=== PATIENT | male | born 1960 | race Two or more races ===

== ENCOUNTER 2018-06-02 19:10 | Inpatient (IN) | payer OTHER ==
[2018-06-02 20:20] VITALS: BMI 40.3
--- NOTE | 2018-06-02 20:43 | HP ---
CIWA Score Nausea/Vomitin-Mild Nausea/No Vomiting Muscle Tremors: 4-Moderate,w/Arms Extend Anxiety: 3 Agitation: 4-Moderately Restless Paroxysmal Sweats: 3 Orientation: 2-Disoriented Date<2 days Tacttile Disturbances: 0-None Auditory Disturbances: 0-None Visual Disturbances: 0-None Headache: 0-None Present CIWA-Ar Total Score: 17 - Admission Criteria OASAS Guidelines: Admission for Medically Managed Detox: Requires at least one of the followin. CIWA greater than 12 2. Seizures within the past 24 hours 3. Delirium tremens within the past 24 hours 4. Hallucinations within the past 24 hours 5. Acute intervention needed for co occurring medical disorder 6. Acute intervention needed for co occurring psychiatric disorder 7. Severe withdrawal that cannot be handled at a lower level of care (continued vomiting, continued diarrhea, abnormal vital signs) requiring intravenous medication and/or fluids 8. Admission ROS [facility] Chief Complaint: Alcohol withdrawal symptoms Allergies/Adverse Reactions: Allergies Allergy/AdvReac Type Severity Reaction Status Date / Time No Known Allergies Allergy Verified 06/02/18 20:22 History of Present Illness: 57 years old male with a long history of alcohol dependence is seeking admission to detox. Patient's last detox was in 2011 and he reports insignificant period of sobriety. He has medical history of cirrhosis of the liver , depression, hypertension and Diabetes. He denies suicide attempt and suicidal ideation at this time. He is on Methadone 130mg with [facility] . Dose is yet to be verified by the nurse. Exam Limitations: No Limitations - Ebola screening Have you traveled outside of the country in the last 21 days: No (N) Have you had contact with anyone from an Ebola affected area: No Have you been sick,other than usual withdrawal symptoms: No Do you have a fever: No - Review of Systems Constitutional: Chills, Malaise, Changes in sleep EENT: reports: Sinus Pressure Respiratory: reports: No Symptoms reported Cardiac: reports: No Symptoms Reported GI: reports: Abdominal Distended, Poor Appetite, Poor Fluid Intake, Abdominal cramping Musculoskeletal: reports: No Symptoms Reported Integumentary: reports: Dryness, Flushing Neuro: reports: Tremors Endocrine: reports: No Symptoms Reported Hematology: reports: No Symptoms Reported Psychiatric: reports: Mood/Affect Appropiate, Anxious Other Systems: Reviewed and Negative Patient History - Patient Medical History Hx Asthma: No Hx Chronic Obstructive Pulmonary Disease (COPD): No Hx Cancer: No Hx Cardiac Disorders: No Hx Congestive Heart Failure: No Hx Hypertension: Yes (Not on medication) Hx Hypercholesterolemia: No HX Cerebrovascular Accident: No Hx Seizures: No Hx Diabetes: Yes (NIDDM-Metformin) Hx Gastrointestinal Disorders: Yes (CIRRHOSIS OF THE LIVER) Hx Genitourinary Disorders: No Hx Sexually Transmitted Disorders: No Hx Renal Disease (ESRD): No Hx Human Immunodeficiency Virus (HIV): No (NEGATIVE ON 07/2011) Hx Hepatitis C: No (DENIES) Hx Depression: Yes Hx Suicide Attempt: No (DENIES SUICIDAL IDEATION AT THIS TIME) Hx Bipolar Disorder: Yes Hx Schizophrenia: No - Patient Surgical History Past Surgical History: No Hx Neurologic Surgery: No Hx Cataract Extraction: No Hx Cardiac Surgery: No Hx Lung Surgery: No Hx Abdominal Surgery: No Hx Appendectomy: No Hx Cholecystectomy: No Hx Genitourinary Surgery: No Hx Orthopedic Surgery: No Anesthesia Reaction: No - PPD History Previous Implant?: Yes Documented Results: Negative w/proof Implanted On Prior [facility] Admission?: Yes Date: 01/04/12 PPD to be Administered?: Yes - Reproductive History Patient is a Female of Child Bearing Age (11 -55 yrs old): No (MALE) - Smoking Cessation Smoking history: Current every day smoker Have you smoked in the past 12 months: Yes Aproximately how many cigarettes per day: 15 Hx Chewing Tobacco Use: No Initiated information on smoking cessation: Yes 'Breaking Loose' booklet given: 06/02/18 - Substance & Tx. History Hx Alcohol Use: Yes Hx Substance Use: No Substance Use Type: Alcohol Hx Substance Use Treatment: Yes ([facility] 2011) - Substances Abused Alcohol Route: Oral Frequency: Daily Amount used: LIQUOR- 3 PINTS, BEER- 4 SIX PACKS Age of first use: 18 Date of Last Use: 06/02/18 Family Disease History - Family Disease History Family History: Denies Admission Physical Exam [facility] - Vital Signs Vital Signs: Vital Signs - 24 hr 06/02/18 20:16 Temperature 97.6 F Pulse Rate 91 H Respiratory 18 Rate Blood Pressure 122/76 - Physical General Appearance: Yes: Severe Distress, Tremorous, Irritable, Sweating, Anxious HEENTM: Yes: Nasal Congestion Respiratory: Yes: Lungs Clear, Normal Breath Sounds, No Respiratory Distress Neck: Yes: Supple Breast: Yes: Breast Exam Deferred Cardiology: Yes: Tachycardia Abdominal: Yes: Protuberent, Distended, Other (CIRRHOSIS OF THE LIVER) Genitourinary: Yes: Polyuria Back: Yes: Normal Inspection Musculoskeletal: Yes: Within Normal Limits Extremities: Yes: Tremors Neurological: Yes: Alert, Normal Mood/Affect Integumentary: Yes: Warm Lymphatic: Yes: Within Normal Limits - Diagnostic (1) Alcohol dependence with uncomplicated withdrawal Current Visit: Yes Status: Chronic (2) Hypertension Current Visit: Yes Status: Chronic Qualifiers: Hypertension type: essential hypertension Qualified Code(s): I10 - Essential (primary) hypertension (3) Cirrhosis of liver Current Visit: Yes Status: Chronic Qualifiers: Hepatic cirrhosis type: alcoholic cirrhosis (4) DM type 2 (diabetes mellitus, type 2) Current Visit: Yes Status: Chronic Cleared for Admission [facility] - Detox or Rehab [facility] Level of Care: Medically Managed Detox Regimen/Protocol: Librium S Breath Alcohol Content Breath Alcohol Content: 0.127 Urine Drug Screen - Results Drug Screen Negative: No Urine Drug Screen Results: MTD-Methadone Inpatient Rehab Admission - Rehab Decision to Admit Inpatient rehab admission?: No
[2018-06-02] MEDS ORDERED: ACETAMINOPHEN 325 MG TABLET (FP) PO PRN (21:01)
[2018-06-02] MEDS ORDERED: MAGNESIUM CITRATE 300 ML BOTTLE PO PRN (21:01)
[2018-06-02] MEDS ORDERED: chlordiazePOXIDE HCL 25 MG CAPSULE PO PRN (21:01)
[2018-06-02] MEDS ORDERED: NICOTINE POLACRILEX 2 MG GUM BC PRN (21:01)
[2018-06-02] MEDS ORDERED: LOPERAMIDE HCL 2 MG CAPSULE PO PRN (21:01)
[2018-06-02] MEDS ORDERED: IBUPROFEN 400 MG TABLET (FP) PO PRN (21:01)
[2018-06-02] MEDS ORDERED: MAGNESIUM HYDROX 2400MG/30ML ORAL SUSPENSION 30 ML CUP PO PRN (21:01)
[2018-06-02] MEDS ORDERED: guaiFENesin/D-METHORPHAN HB 10 ML UNIT-DOSE CUPS PO PRN (21:01)
[2018-06-02] MEDS ORDERED: MENTHOL/PHENOL 1 EACH UD MM PRN (21:01)
[2018-06-02] MEDS ORDERED: MAG HYDROX/AL HYDROX/SIMETH 30 ML UNIT-DOSE CUP PO PRN (21:01)
[2018-06-02] MEDS ORDERED: P-EPHED 60MG/TRIPROLIDI 2.5MG TABLET PO PRN (21:01)
[2018-06-02] MEDS: chlordiazePOXIDE HCL 25 MG CAPSULE PO SCH (22:40)
[2018-06-02] MEDS: THIAMINE HCL 100 MG TABLET (FP) PO SCH (22:40)
[2018-06-03] MEDS: chlordiazePOXIDE HCL 25 MG CAPSULE PO SCH ×4 (05:14→23:06)
[2018-06-03] MEDS: metFORMIN HCL 500 MG TABLET (FP) PO SCH (06:10)
--- NOTE | 2018-06-03 09:13 | CONSULT ---
[facility] Psychiatric Consult - Data Date of interview: 06/03/18 Admission source: [facility] Identifying data: Patient is a 57 year old single male, father of one, unemployed, homeless, and is supported by [facility]. This is patient's first admission to detox at [facility]. Patient admitted to for alcohol dependence. Substance Abuse History: - Smoking Cessation. Smoking history: Current every day smoker. Have you smoked in the past 12 months: Yes. Aproximately how many cigarettes per day: 15. Hx Chewing Tobacco Use: No. Initiated information on smoking cessation: Yes. 'Breaking Loose' booklet given: 06/02/18. - Substance & Tx. History. Hx Alcohol Use: Yes. Hx Substance Use: No. Substance Use Type : Alcohol. Hx Substance Use Treatment: Yes ([facility] 2011). - Substances Abused. Alcohol. Route: Oral. Frequency: Daily. Amount used: LIQUOR- 3 PINTS, BEER - 4 SIX PACKS. Age of first use: 18. Date of Last Use: 06/02/18 Medical History: hypertension, diabetes, cirrhosis of the liver Psychiatric History: Patient denies h/o psychiatric hospitalizations and suicide attempt. Outpatient psychiatric care is currently provided at [facility] in the [place], [place]. Mr. Urena is prescribed Zyprexa 2.5mg + Paxil 40mg daily. He reports diagnosis of depression and panic attacks. Mr. Urena is also on methadone maintenance of 130mg daily at the [facility]adone clinic. Physical/Sexual Abuse/Trauma History: denies. Mental Status Exam - Mental Status Exam Alert and Oriented to: Time, Place, Person Cognitive Function: Good Patient Appearance: Well Groomed Mood: Withdrawn Affect: Appropriate Patient Behavior: Cooperative Speech Pattern: Appropriate Voice Loudness: Normal Thought Process: Intact, Goal Oriented Thought Disorder: Not Present Hallucinations: Denies Suicidal Ideation: Denies Homicidal Ideation: Denies Insight/Judgement: Poor Sleep: Fair Appetite: Fair Muscle strength/Tone: Normal Gait/Station: Other Psychiatric Findings - Problem List ([place] 1, 2,3) (1) Alcohol dependence with uncomplicated withdrawal Current Visit: Yes Status: Acute (2) Alcohol dependence Current Visit: Yes Status: Active (3) Alcohol-induced mood disorder Current Visit: Yes Status: Acute (4) Methadone maintenance therapy patient Current Visit: Yes Status: Chronic (5) Depressive disorder Current Visit: Yes Status: Suspected - Initial Treatment Plan Initial Treatment Plan: Psychoeducation provided. Detoxification in progress. Will order Paxil 40mg daily + Zyprexa 2.5mg. Benefits and side effects discussed. Verbal consent given.
[2018-06-03] MEDS ORDERED: METHADONE HCL 10 MG TABLET PO ONE (10:00)
[2018-06-03] MEDS: LISINOPRIL 20 MG TABLET (FP) PO SCH (10:07)
[2018-06-03] MEDS: PRENATAL VITAMINS W/ FOLIC ACID TABLET (FP) PO SCH (10:07)
[2018-06-03] MEDS ORDERED: PARoxetine HCL 10 MG TABLET (FP) ONE (10:08)
[2018-06-03] MEDS: PARoxetine HCL 20 MG TABLET (FP) PO SCH (10:09)
[2018-06-03] MEDS: NICOTINE 14 MG/24 HOURS TOPICAL PATCH TD SCH (10:13)
[2018-06-03 10:43] LABS: HEMATOCRIT 35.5 % (35.4-49); HEMOGLOBIN 12.5 GM/dL (11.7-16.9); MCHC 35.1 g/dl (32.0-35.9); MEAN PLT VOLUME 10.3 fl (7.5-11.1); PLATELET COUNT 55 K/MM3 (134-434); RBC 3.78 M/mm3 (4.00-5.60); RDW 15.8 % (11.9-15.9); WHITE BLOOD COUNT 3.7 K/mm3 (4.0-10.0)
[2018-06-03 11:06] LABS: ALBUMIN 2.2 g/dl (3.4-5.0); ALK PHOS 264 U/L (45-117); ANION GAP 5 MMOL/L (8-16); BILIRUBIN,TOTAL 0.8 mg/dL (0.2-1); BLOOD UREA NITROGEN 7 mg/dL (7-18); CALCIUM 7.1 mg/dL (8.5-10.1); CHLORIDE 101 mmol/L (98-107); CO2 34 mmol/L (21-32); CREATININE 0.5 mg/dL (0.55-1.3); GLUCOSE,RANDOM 115 mg/dL (74-106); POTASSIUM 3.2 mmol/L (3.5-5.1); SGOT/AST 79 U/L (15-37); SGPT/ALT 56 U/L (13-61); SODIUM 139 mmol/L (136-145); TOT PROT 6.1 g/dl (6.4-8.2)
--- NOTE | 2018-06-03 12:39 | EKG ---
Test Reason : Blood Pressure : / mmHG Vent. Rate : 092 BPM Atrial Rate : 092 BPM P-R Int : 142 ms QRS Dur : 084 ms QT Int : 374 ms P-R-T Axes : 074 -33 050 degrees QTc Int : 462 ms NORMAL SINUS RHYTHM LEFT AXIS DEVIATION MINIMAL VOLTAGE CRITERIA FOR LVH, MAY BE NORMAL VARIANT NONSPECIFIC ST ABNORMALITY ABNORMAL ECG NO PREVIOUS ECGS AVAILABLE Confirmed by JEOVANNY MEHTA MD ([id number]) on 06/03/2018 12:39:17 PM Referred By: Confirmed By:JEOVANNY MEHTA MD
[2018-06-03] MEDS: ATENOLOL 50 MG TABLET (FP) PO SCH (13:04)
[2018-06-03] MEDS: OLANZapine 2.5 MG TABLET PO SCH (13:04)
--- NOTE | 2018-06-03 15:45 | PN ---
S CIWA - CIWA Score Nausea/Vomitin-Mild Nausea/No Vomiting Muscle Tremors: 3 Anxiety: 2 Agitation: 3 Paroxysmal Sweats: 1-Minimal Palms Moist Orientation: 1-Uncertain about Date Tacttile Disturbances: 0-None Auditory Disturbances: 0-None Visual Disturbances: 0-None Headache: 2-Mild CIWA-Ar Total Score: 13 S Progress Note (SOAP) Subjective: tremor sweating swelling and skin discoloration both legs x "months" Objective: 06/03/18 15:51 Vital Signs Temperature 97.1 F L 06/03/18 13:33 Pulse Rate 91 H 06/03/18 13:33 Respiratory Rate 20 06/03/18 13:33 Blood Pressure 137/86 06/03/18 13:33 O2 Sat by Pulse Oximetry (%) Laboratory Last Values WBC 3.7 K/mm3 (4.0-10.0) L 06/03/18 07:50 RBC 3.78 M/mm3 (4.00-5.60) L 06/03/18 07:50 Hgb 12.5 GM/dL (11.7-16.9) 06/03/18 07:50 Hct 35.5 % (35.4-49) 06/03/18 07:50 MCV 94.0 fl (80-96) 06/03/18 07:50 MCH 33.0 pg (25.7-33.7) 06/03/18 07:50 MCHC 35.1 g/dl (32.0-35.9) 06/03/18 07:50 RDW 15.8 % (11.9-15.9) 06/03/18 07:50 Plt Count 55 K/MM3 (134-434) L 06/03/18 07:50 MPV 10.3 fl (7.5-11.1) 06/03/18 07:50 Sodium 139 mmol/L (136-145) 06/03/18 07:50 Potassium 3.2 mmol/L (3.5-5.1) L 06/03/18 07:50 Chloride 101 mmol/L (98-107) 06/03/18 07:50 Carbon Dioxide 34 mmol/L (21-32) H 06/03/18 07:50 Anion Gap 5 MMOL/L (8-16) L 06/03/18 07:50 BUN 7 mg/dL (7-18) 06/03/18 07:50 Creatinine 0.5 mg/dL (0.55-1.3) L 06/03/18 07:50 Creat Clearance w eGFR > 60 (>60) 06/03/18 07:50 POC Glucometer 141 UNITS (80-120) 06/03/18 05:15 Random Glucose 115 mg/dL (74-106) H 06/03/18 07:50 Calcium 7.1 mg/dL (8.5-10.1) L 06/03/18 07:50 Total Bilirubin 0.8 mg/dL (0.2-1) 06/03/18 07:50 AST 79 U/L (15-37) H 06/03/18 07:50 ALT 56 U/L (13-61) 06/03/18 07:50 Alkaline Phosphatase 264 U/L (45-117) H 06/03/18 07:50 Total Protein 6.1 g/dl (6.4-8.2) L 06/03/18 07:50 Albumin 2.2 g/dl (3.4-5.0) L 06/03/18 07:50 RPR Titer Nonreactive (NONREACTIVE) 06/03/18 07:50 lab noted Assessment: 06/03/18 15:52 withdrawal sx low platelets Plan: continue detox discontinue motrin
[2018-06-03] MEDS: MELATONIN 5 MG TABLETS PO PRN (23:06)
[2018-06-03] MEDS: THIAMINE HCL 100 MG TABLET (FP) PO SCH (23:06)
[2018-06-04] MEDS ORDERED: METHADONE HCL 10 MG TABLET ONE (04:55)
[2018-06-04] MEDS ORDERED: METHADONE HCL 40 MG DISPERSABLE TABLET ONE (04:55)
[2018-06-04] MEDS: chlordiazePOXIDE HCL 25 MG CAPSULE PO SCH ×3 (05:17→17:30)
[2018-06-04] MEDS: METHADONE 120 MG, METHADONE 10 MG PO SCH (05:17)
[2018-06-04] MEDS ORDERED: METHADONE HCL 10 MG TABLET PO SCH (06:00)
[2018-06-04] MEDS: metFORMIN HCL 500 MG TABLET (FP) PO SCH (06:58)
[2018-06-04] MEDS ORDERED: PARoxetine HCL 10 MG TABLET (FP) ONE (08:40)
--- NOTE | 2018-06-04 09:46 | PN ---
S CIWA - CIWA Score Nausea/Vomitin-No Nausea/No Vomiting Muscle Tremors: 3 Anxiety: 2 Agitation: 2 Paroxysmal Sweats: 1-Minimal Palms Moist Orientation: 0-Oriented Tacttile Disturbances: 0-None Auditory Disturbances: 0-None Visual Disturbances: 0-None Headache: 2-Mild CIWA-Ar Total Score: 10 S Progress Note (SOAP) Subjective: tremor sweating ambulate with cane low platelets discontinue motrin Objective: 06/04/18 09:47 Vital Signs Temperature 97.5 F L 06/04/18 09:11 Pulse Rate 83 06/04/18 09:11 Respiratory Rate 18 06/04/18 09:11 Blood Pressure 140/87 06/04/18 09:11 O2 Sat by Pulse Oximetry (%) Laboratory Last Values WBC 3.7 K/mm3 (4.0-10.0) L 06/03/18 07:50 RBC 3.78 M/mm3 (4.00-5.60) L 06/03/18 07:50 Hgb 12.5 GM/dL (11.7-16.9) 06/03/18 07:50 Hct 35.5 % (35.4-49) 06/03/18 07:50 MCV 94.0 fl (80-96) 06/03/18 07:50 MCH 33.0 pg (25.7-33.7) 06/03/18 07:50 MCHC 35.1 g/dl (32.0-35.9) 06/03/18 07:50 RDW 15.8 % (11.9-15.9) 06/03/18 07:50 Plt Count 55 K/MM3 (134-434) L 06/03/18 07:50 MPV 10.3 fl (7.5-11.1) 06/03/18 07:50 Sodium 139 mmol/L (136-145) 06/03/18 07:50 Potassium 3.2 mmol/L (3.5-5.1) L 06/03/18 07:50 Chloride 101 mmol/L (98-107) 06/03/18 07:50 Carbon Dioxide 34 mmol/L (21-32) H 06/03/18 07:50 Anion Gap 5 MMOL/L (8-16) L 06/03/18 07:50 BUN 7 mg/dL (7-18) 06/03/18 07:50 Creatinine 0.5 mg/dL (0.55-1.3) L 06/03/18 07:50 Creat Clearance w eGFR > 60 (>60) 06/03/18 07:50 POC Glucometer 135 UNITS (80-120) 06/04/18 05:17 Random Glucose 115 mg/dL (74-106) H 06/03/18 07:50 Calcium 7.1 mg/dL (8.5-10.1) L 06/03/18 07:50 Total Bilirubin 0.8 mg/dL (0.2-1) 06/03/18 07:50 AST 79 U/L (15-37) H 06/03/18 07:50 ALT 56 U/L (13-61) 06/03/18 07:50 Alkaline Phosphatase 264 U/L (45-117) H 06/03/18 07:50 Total Protein 6.1 g/dl (6.4-8.2) L 06/03/18 07:50 Albumin 2.2 g/dl (3.4-5.0) L 06/03/18 07:50 RPR Titer Nonreactive (NONREACTIVE) 06/03/18 07:50 lab noted 06/04/18 09:56 low K+ low Ca++ Assessment: 06/04/18 10:02 withdrawal sx hypocalcemia hypokelemia Plan: continue detox potassium supplement calcium supplement repeat K+
[2018-06-04] MEDS ORDERED: POTASSIUM CHLORIDE ORAL LIQUID 20 MEQ/15 ML PO ONE ×2 (10:00→16:00)
[2018-06-04] MEDS ORDERED: CALCIUM 250MG/VIT-D 125 UNITS 1 COMBO TABLET PO SCH (10:15)
[2018-06-04] MEDS: LISINOPRIL 20 MG TABLET (FP) PO SCH (10:19)
[2018-06-04] MEDS: PRENATAL VITAMINS W/ FOLIC ACID TABLET (FP) PO SCH (10:19)
[2018-06-04] MEDS: NICOTINE 14 MG/24 HOURS TOPICAL PATCH TD SCH (10:20)
[2018-06-04] MEDS: OLANZapine 2.5 MG TABLET PO SCH (11:34)
[2018-06-04] MEDS: PARoxetine HCL 20 MG TABLET (FP) PO SCH (11:35)
[2018-06-04] MEDS: ATENOLOL 50 MG TABLET (FP) PO SCH (11:35)
[2018-06-04] MEDS: CALCIUM 250MG/VIT-D 125 UNITS 1 COMBO TABLET PO SCH (17:30)
[2018-06-04] MEDS: THIAMINE HCL 100 MG TABLET (FP) PO SCH (22:10)
[2018-06-04] MEDS: chlordiazePOXIDE 5 MG CAPSULE PO SCH (22:10)
[2018-06-04] MEDS: MELATONIN 5 MG TABLETS PO PRN (22:10)
[2018-06-05] MEDS ORDERED: METHADONE HCL 10 MG TABLET ONE (04:35)
[2018-06-05] MEDS ORDERED: METHADONE HCL 40 MG DISPERSABLE TABLET ONE (04:35)
[2018-06-05] MEDS: METHADONE 120 MG, METHADONE 10 MG PO SCH (05:15)
[2018-06-05] MEDS: chlordiazePOXIDE 5 MG CAPSULE PO SCH ×3 (05:15→17:52)
[2018-06-05] MEDS: metFORMIN HCL 500 MG TABLET (FP) PO SCH (07:19)
[2018-06-05] MEDS: CALCIUM 250MG/VIT-D 125 UNITS 1 COMBO TABLET PO SCH ×2 (09:15→17:52)
[2018-06-05] MEDS: PRENATAL VITAMINS W/ FOLIC ACID TABLET (FP) PO SCH (10:14)
[2018-06-05] MEDS: PARoxetine HCL 20 MG TABLET (FP) PO SCH (10:14)
[2018-06-05] MEDS: LISINOPRIL 20 MG TABLET (FP) PO SCH (10:15)
[2018-06-05] MEDS: ATENOLOL 50 MG TABLET (FP) PO SCH (10:15)
[2018-06-05] MEDS: OLANZapine 2.5 MG TABLET PO SCH (10:17)
[2018-06-05] MEDS: NICOTINE 14 MG/24 HOURS TOPICAL PATCH TD SCH (10:17)
--- NOTE | 2018-06-05 10:36 | PN ---
S CIWA - CIWA Score Nausea/Vomitin-No Nausea/No Vomiting Muscle Tremors: 2 Anxiety: 2 Agitation: 2 Paroxysmal Sweats: 1-Minimal Palms Moist Orientation: 0-Oriented Tacttile Disturbances: 0-None Auditory Disturbances: 0-None Visual Disturbances: 0-None Headache: 0-None Present CIWA-Ar Total Score: 7 [facility] Progress Note (SOAP) Subjective: feeling better mild tremor less sweating last 30 days filled medication was 05/22/18 Objective: 06/05/18 10:39 Vital Signs Temperature 97.4 F L 06/05/18 09:22 Pulse Rate 84 06/05/18 09:22 Respiratory Rate 18 06/05/18 09:22 Blood Pressure 137/92 06/05/18 09:22 O2 Sat by Pulse Oximetry (%) Laboratory Last Values WBC 3.7 K/mm3 (4.0-10.0) L 06/03/18 07:50 RBC 3.78 M/mm3 (4.00-5.60) L 06/03/18 07:50 Hgb 12.5 GM/dL (11.7-16.9) 06/03/18 07:50 Hct 35.5 % (35.4-49) 06/03/18 07:50 MCV 94.0 fl (80-96) 06/03/18 07:50 MCH 33.0 pg (25.7-33.7) 06/03/18 07:50 MCHC 35.1 g/dl (32.0-35.9) 06/03/18 07:50 RDW 15.8 % (11.9-15.9) 06/03/18 07:50 Plt Count 55 K/MM3 (134-434) L 06/03/18 07:50 MPV 10.3 fl (7.5-11.1) 06/03/18 07:50 Sodium 139 mmol/L (136-145) 06/03/18 07:50 Potassium 3.2 mmol/L (3.5-5.1) L 06/03/18 07:50 Chloride 101 mmol/L (98-107) 06/03/18 07:50 Carbon Dioxide 34 mmol/L (21-32) H 06/03/18 07:50 Anion Gap 5 MMOL/L (8-16) L 06/03/18 07:50 BUN 7 mg/dL (7-18) 06/03/18 07:50 Creatinine 0.5 mg/dL (0.55-1.3) L 06/03/18 07:50 Creat Clearance w eGFR > 60 (>60) 06/03/18 07:50 POC Glucometer 110 UNITS (80-120) 06/05/18 05:14 Random Glucose 115 mg/dL (74-106) H 06/03/18 07:50 Calcium 7.1 mg/dL (8.5-10.1) L 06/03/18 07:50 Total Bilirubin 0.8 mg/dL (0.2-1) 06/03/18 07:50 AST 79 U/L (15-37) H 06/03/18 07:50 ALT 56 U/L (13-61) 06/03/18 07:50 Alkaline Phosphatase 264 U/L (45-117) H 06/03/18 07:50 Total Protein 6.1 g/dl (6.4-8.2) L 06/03/18 07:50 Albumin 2.2 g/dl (3.4-5.0) L 06/03/18 07:50 RPR Titer Nonreactive (NONREACTIVE) 06/03/18 07:50 lab noted low potassium repeat K+ pending discontinue motrin low [place] 06/05/18 10:41 Assessment: 06/05/18 10:41 mild withdrawal sx Plan: continue detox
[2018-06-05] MEDS: THIAMINE HCL 100 MG TABLET (FP) PO SCH (22:41)
[2018-06-05] MEDS: chlordiazePOXIDE HCL 10 MG CAPSULE PO SCH (22:41)
[2018-06-06] MEDS ORDERED: METHADONE HCL 40 MG DISPERSABLE TABLET ONE (04:55)
[2018-06-06] MEDS ORDERED: METHADONE HCL 10 MG TABLET ONE (04:55)
[2018-06-06] MEDS: METHADONE 120 MG, METHADONE 10 MG PO SCH (06:06)
[2018-06-06] MEDS: metFORMIN HCL 500 MG TABLET (FP) PO SCH (06:06)
[2018-06-06] MEDS: chlordiazePOXIDE HCL 10 MG CAPSULE PO SCH ×2 (06:06→10:29)
[2018-06-06] MEDS: CALCIUM 250MG/VIT-D 125 UNITS 1 COMBO TABLET PO SCH (07:56)
[2018-06-06] MEDS ORDERED: PARoxetine HCL 10 MG TABLET (FP) ONE (08:32)
[2018-06-06] MEDS: PRENATAL VITAMINS W/ FOLIC ACID TABLET (FP) PO SCH (10:29)
[2018-06-06] MEDS: LISINOPRIL 20 MG TABLET (FP) PO SCH (10:29)
[2018-06-06] MEDS: PARoxetine HCL 20 MG TABLET (FP) PO SCH (10:29)
[2018-06-06] MEDS: OLANZapine 2.5 MG TABLET PO SCH (10:29)
[2018-06-06] MEDS: NICOTINE 14 MG/24 HOURS TOPICAL PATCH TD SCH (10:29)
[2018-06-06] MEDS: ATENOLOL 50 MG TABLET (FP) PO SCH (10:29)
[2018-06-06 13:41] VITALS: BP 130/70; PULSE 66; TEMP 97.4
--- NOTE | 2018-06-06 15:46 | DS ---
[facility] Detox Discharge Summary Admission Date: 06/02/18 Discharge Date: 06/06/18 - History Present History: Alcohol Dependence Additional Comments: 57 years old male admitted on 06/02/18 for alcohol withdrawal stabilization completed detox regimen aftercare [facility] Pertinent Past History: patient agrees to return to [facility] admission tomorrow that bring in his clothing and acceptable toilet tress and hygiene products patient is alert motivated to maintain sober that he has support network at home and in the community - Physical Exam Results Vital Signs: Vital Signs Temperature 97.4 F L 06/06/18 13:39 Pulse Rate 66 06/06/18 13:39 Respiratory Rate 18 06/06/18 13:39 Blood Pressure 130/70 06/06/18 13:39 O2 Sat by Pulse Oximetry (%) Pertinent Admission Physical Exam Findings: alcohol withdrawal sx - Treatment Hospital Course: Detox Protocol Followed, Responded well Patient has Accepted a Rehab Referral to: [facility] - Medication Discharge Medications: Ambulatory Orders Atenolol [Tenormin -] 50 mg PO DAILY 01/02/12 Furosemide [Lasix -] 20 mg PO BID 01/02/12 Gabapentin [Neurontin [DO NOT STOCK]] 300 mg PO BID 01/02/12 Lisinopril [Prinivil] 20 mg PO DAILY 01/02/12 Olanzapine [ZyPREXA -] 2.5 mg PO HS 01/02/12 Paroxetine Oral Suspension [Paxil 10mg/5mL Oral Suspension -] 20 mg PO DAILY 02/04 Triamcinolone 0.025% Ointment [Aristocort 0.025% Ointment -] 1 applic TP DAILY 01/02/12 Zolpidem Tartrate [Ambien] 10 mg PO HS 01/02/12 metFORMIN HCL [Glucophage -] 500 mg PO DAILY 01/02/12 Paroxetine HCl [Paxil] 40 mg PO DAILY 06/03/18 - Diagnosis (1) Alcohol dependence with uncomplicated withdrawal Status: Acute (2) Cirrhosis of liver Status: Chronic Qualifiers: Hepatic cirrhosis type: alcoholic cirrhosis Ascites presence: without ascites Qualified Code(s): K70.30 - Alcoholic cirrhosis of liver without ascites (3) DM type 2 (diabetes mellitus, type 2) Status: Chronic Qualifiers: Diabetes mellitus usp insulin use: with intermediate manager use Diabetes mellitus complication status: with unspecified complications Qualified Code(s) : E11.8 - Type 2 diabetes mellitus with unspecified complications; Z79.4 - computer terminal operator (current) use of insulin (4) Hypertension Status: Chronic Qualifiers: Hypertension type: essential hypertension Qualified Code(s): I10 - Essential (primary) hypertension (5) Methadone maintenance therapy patient Status: Chronic - AMA Did Patient Leave Against Medical Advice: No
== END 2018-06-06 14:10 | disposition home or self-care (01) | DRG 773 ==
LOC: YASAS 19:10 → Y3N 20:40
PROVIDERS: ADMIT Surgery; ATTEND Surgery
PROC: HZ2ZZZZ Detoxification Services for Substance Abuse Treatment (ICD-10-PCS; principal; 2018-06-02)
DX: F10.230 Alcohol dependence with withdrawal, uncomplicated (principal); F10.24 Alcohol dependence with alcohol-induced mood disorder; F11.20 Opioid dependence, uncomplicated; F17.210 Nicotine dependence, cigarettes, uncomplicated; F32.9 Major depressive disorder, single episode, unspecified; I10 Essential (primary) hypertension; E11.8 Type 2 diabetes mellitus with unspecified complications; K70.30 Alcoholic cirrhosis of liver without ascites; E87.6 Hypokalemia; E83.51 Hypocalcemia; R00.0 Tachycardia, unspecified; Z79.84 Long term (current) use of oral hypoglycemic drugs
CPT/HCPCS: 36415; 80053; 82962; 84132; 85027; 86593; 93005; 93010